=== PATIENT | female | born 1995 | race Caucasian/White ===

== ENCOUNTER 2020-07-26 04:35 | Emergency (ER) | payer BC ==
[2020-07-26 04:45] VITALS: O2SAT 100
[2020-07-26] MEDS ORDERED: Sodium Chloride 0.9% 1000 ML 1,000 ML IV STA (05:04)
--- NOTE | 2020-07-26 05:04 | ERPHSYRPT ---
- History of Present Illness Source: patient, family Exam Limitations: no limitations Patient Subjective Stated Complaint: " I woke up at 4:30am and noticed a small amount of blood in my urine. It concerned me because I am 8 weeks and 4 days with twins. I am not having any pain right now though". Triage Nursing Assessment: . Timing/Duration: today Activites at Onset: rest Quality: other (no pain) Onset Location: other (no pain) Pain Radiation: none Severity of Pain-Max: none Severity of Pain-Current: none Prior abdominal problems: none Sexual intercourse history: non-contributory Modifying Factors: Improves With: nothing Associated Symptoms: other (vag bleeding) Hx Tetanus, Diphtheria Vaccination/Date Given: Yes Hx Influenza Vaccination/Date Given: Yes Hx Pneumococcal Vaccination/Date Given: No <HATTIE GAMINO - Last Filed: 07/26/20 06:56> <MARIA ELENA PAREDES - Last Filed: 07/26/20 09:08> - History of Present Illness Time Seen by Provider: 07/26/20 04:59 Physician History: pt is 8 weeks preg with twins and noted bleeding down below. No abd pain or cramping. abd is nontender without peritoneal signs. no other symptoms or signs reported. had normal US just last week. (HATTIE GAMINO) Allergies/Adverse Reactions: No Known Drug Allergies Allergy (Unverified 07/26/20 04:45) Home Medications: Aspirin 81 gm Chew [Baby Aspirin 81 mg Chew] 81 mg PO DAILY 07/26/20 [History] Cholecalciferol (Vitamin D3) [Vitamin D] 5,000 units PO DAILY 07/26/20 [History] Levothyroxine Sodium 50 mcg PO DAILY 07/26/20 [History] Metformin HCl 500 mg PO BID 07/26/20 [History] [place]-3 Fatty Acids/Fish Oil [Fish Oil 1,000 mg Capsule] 1 cap PO DAILY 07/26/20 [History] Vits W-Ca,Fe,FA(<1Mg) [] 1 tab PO DAILY 07/26/20 [History] proGESTerone [Progesterone] 50 mg VAG HS 07/26/20 [History] Travel Risk - International Travel Have you traveled outside of the country in past 3 weeks: No - Coronavirus Screening Are you exhibiting any of the following symptoms?: No Close contact with a COVID-19 positive Pt in past 14-21 Days: No <HATTIE GAMINO - Last Filed: 07/26/20 06:56> - Review of Systems Constitutional: No Fever, No Chills Eyes: No Symptoms Ears, Nose, & Throat: No Symptoms Respiratory: No Cough, No Dyspnea Cardiac: No Chest Pain, No Edema, No Syncope Abdominal/Gastrointestinal: No Abdominal Pain, No Nausea, No Vomiting, No Diarrhea Genitourinary Symptoms: Vaginal Bleeding, No Dysuria Musculoskeletal: No Back Pain, No Neck Pain Skin: No Symptoms, No Rash Neurological: No Symptoms, No Dizziness, No Focal Weakness, No Sensory Changes Psychological: No Symptoms Endocrine: No Symptoms Hematologic/Lymphatic: No Symptoms Immunological/Allergic: No Symptoms All Other Systems: Reviewed and Negative <HATTIE GAMINO - Last Filed: 07/26/20 06:56> - Past Medical History Pertinent Past Medical History: Yes Endocrine Medical History: Hypothyroidism - Past Surgical History Past Surgical History: Yes Other Surgical History: spinal fusion - Social History Smoking Status: Never smoker Exposure to second hand smoke: No Drug Use: none Patient Lives Alone: No - Female History Hx Last Menstrual Period: 05/27/20 Hx Now: Yes Expected Date of Delivery: 03/03/21 <HATTIE GAMINO - Last Filed: 07/26/20 06:56> - Physical Exam General Appearance: no apparent distress, alert Eye Exam: PERRL/EOMI, eyes nml inspection Ears, Nose, Throat Exam: normal ENT inspection, TMs normal, pharynx normal, moist mucous membranes Neck Exam: normal inspection, non-tender, supple, full range of motion Respiratory Exam: normal breath sounds, lungs clear, No respiratory distress Cardiovascular Exam: regular rate/rhythm, normal heart sounds, normal peripheral pulses Gastrointestinal/Abdomen Exam: soft, No tenderness, No mass Pelvic Exam: deferred (no placental or memb disruption on US ) Rectal Exam: deferred Back Exam: normal inspection, normal range of motion, No CVA tenderness, No vertebral tenderness Extremity Exam: normal inspection, normal range of motion, pelvis stable Neurologic Exam: alert, oriented x 3, cooperative, music pastor II-XII nml as tested, normal mood/affect, sensation nml, No motor deficits Skin Exam: normal color, warm, dry Lymphatic Exam: No adenopathy SpO2 Interpretation: normal SpO2: 100 O2 Delivery: Room Air <HATTIE GAMINO - Last Filed: 07/26/20 06:56> - Nursing Vital Signs Nursing Vital Signs: Initial Vital Signs Temperature 98.3 F 07/26/20 04:39 Pulse Rate 89 07/26/20 04:39 Respiratory Rate 16 07/26/20 04:39 Blood Pressure 141/84 07/26/20 04:39 O2 Sat by Pulse Oximetry 100 07/26/20 04:39 Pain Scale Pain Intensity 0 - Course Nursing assessment & vital signs reviewed: Yes - Radiology Ultrasound Exam OB Ultrasound: tele radiology report, Other (small amount culdesac fluid - twin gestations intact and nl FHT) <HATTIE GAMINO - Last Filed: 07/26/20 06:56> Ordered Tests: Active Orders 24 hr Category Date Time Status Heart Tones-ED STAT Care 07/26/20 05:04 Active IV Insertion STAT Care 07/26/20 05:04 Active OB <14 WKS 1ST GESTATION [US] Stat Exams 07/26/20 05:05 Completed CBC W DIFF Stat Lab 07/26/20 05:00 Completed CMP Stat Lab 07/26/20 05:00 Completed HCG, Quantitative (Inhouse) Stat Lab 07/26/20 05:00 Completed Medication Summary Discontinued Medications Generic Name Dose Route Start Last Admin Trade Name Freq PRN Reason Stop Dose Admin Sodium Chloride 1,000 mls @ 999 mls/hr 07/26/20 05:04 07/26/20 06:56 Sodium Chloride 0.9% 1000 Ml IV 07/26/20 06:04 Infused .Q1H1M STA Infusion Sodium Chloride Confirm 07/26/20 05:17 Sodium Chloride 0.9% 1000 Ml Administered 07/26/20 05:18 Dose 1,000 mls @ ud .ROUTE .STK-MED ONE Rho Immune Globulin 300 mcg 07/26/20 06:34 07/26/20 07:19 Rhogam Plus 300 Mcg IM 07/26/20 06:35 300 mcg .ONCE ONE Administration Lab/Rad Data: Laboratory Result Diagrams 07/26/20 05:00 07/26/20 05:00 Laboratory Results 07/26/20 07/26/20 07/26/20 Range/Units 05:12 05:00 05:00 WBC (4.0-10.5) K/mm3 RBC (4.1-5.4) M/mm3 Hgb (12.0-16.0) gm/dl Hct (35-47) % MCV (78-100) fl MCH (26-32) pg MCHC (32-36) g/dl RDW (11.5-14.0) % Plt Count (150-450) K/mm3 MPV (7.5-11.0) fl Gran % (36.0-66.0) % Eos # (Auto) (0-0.5) Absolute Lymphs (auto) (1.0-4.6) Absolute Monos (auto) (0.0-1.3) Lymphocytes % (24.0-44.0) % Monocytes % (0.0-12.0) % Eosinophils % (0.00-5.0) % Basophils % (0.0-0.4) % Absolute Granulocytes (1.4-6.9) Basophils # (0-0.4) Sodium 135 L (137-145) mmol/L Potassium 3.7 (3.5-5.1) mmol/L Chloride 104 (98-107) mmol/L Carbon Dioxide 22 (22-30) mmol/L Anion Gap 12.5 (5-15) MEQ/L BUN 11 (7-17) mg/dL Creatinine 0.52 (0.52-1.04) mg/dL Estimated GFR > 60.0 ML/MIN Glucose 87 (74-106) mg/dL Calcium 9.5 (8.4-10.2) mg/dL Total Bilirubin 0.50 (0.2-1.3) mg/dL AST 18 (14-36) U/L ALT 20 (0-35) U/L Alkaline Phosphatase 59 (38-126) U/L Serum Total Protein 6.8 (6.3-8.2) g/dL Albumin 4.0 (3.5-5.0) g/dL Beta HCG, Quant [id number] mIU/ml ABO Group O Rh Factor NEGATIVE Antibody Screen NEGATIVE (NEGATIVE) 07/26/20 Range/Units 05:00 WBC 9.6 (4.0-10.5) K/mm3 RBC 4.63 (4.1-5.4) M/mm3 Hgb 13.3 (12.0-16.0) gm/dl Hct 40.7 (35-47) % MCV 87.9 (78-100) fl MCH 28.7 (26-32) pg MCHC 32.7 (32-36) g/dl RDW 13.7 (11.5-14.0) % Plt Count 250 (150-450) K/mm3 MPV 9.7 (7.5-11.0) fl Gran % 56.1 (36.0-66.0) % Eos # (Auto) 0.46 (0-0.5) Absolute Lymphs (auto) 2.95 (1.0-4.6) Absolute Monos (auto) 0.77 (0.0-1.3) Lymphocytes % 30.7 (24.0-44.0) % Monocytes % 8.0 (0.0-12.0) % Eosinophils % 4.8 (0.00-5.0) % Basophils % 0.4 (0.0-0.4) % Absolute Granulocytes 5.40 (1.4-6.9) Basophils # 0.04 (0-0.4) Sodium (137-145) mmol/L Potassium (3.5-5.1) mmol/L Chloride (98-107) mmol/L Carbon Dioxide (22-30) mmol/L Anion Gap (5-15) MEQ/L BUN (7-17) mg/dL Creatinine (0.52-1.04) mg/dL Estimated GFR ML/MIN Glucose (74-106) mg/dL Calcium (8.4-10.2) mg/dL Total Bilirubin (0.2-1.3) mg/dL AST (14-36) U/L ALT (0-35) U/L Alkaline Phosphatase (38-126) U/L Serum Total Protein (6.3-8.2) g/dL Albumin (3.5-5.0) g/dL Beta HCG, Quant mIU/ml ABO Group Rh Factor Antibody Screen (NEGATIVE) - Progress Progress: re-examined Air Movement: good Blood Culture(s) Obtained: No Antibiotics given: No Discussed with : Toi Will see patient in: office Counseled pt/family regarding: lab results, diagnosis, need for follow-up, rad results <HATTIE GAMINO - Last Filed: 07/26/20 06:56> - Progress Discussed with : Toi Will see patient in: office Counseled pt/family regarding: lab results, diagnosis, need for follow-up, rad results <MARIA ELENA PAREDES - Last Filed: 07/26/20 09:08> - Progress Progress Note: 07/26/20 06:[address] Martines , her OB, and he states she may continue all meds including the baby aspirin as previously prescribed and just be on pelvic rest. 07/26/20 06:41 07/26/20 06:[address] Castro at change of shift to await final US interpretation for any change in disposition after discussion of pending report and fundings, but anticipate DC home on pelvic rest with outpt f/u OB as discussed with Dr. Martines. (HATTIE GAMINO) 07/26/20 09:[address] Martines, no intercourse/No heavy lifting for 1 week (MARIA ELENA PAREDES) - Departure Departure Disposition: Home Critical Care Time: No <GAMINOHATTIE SANDERS - Last Filed: 07/26/20 06:56> - Departure Departure Disposition: Home <MARIA ELENA PAREDES - Last Filed: 07/26/20 09:08> - Departure Clinical Impression: Threatened miscarriage in early Condition: Good Referrals: DAVID JONES, YONATAN [Primary Care Provider] - Instructions: Threatened Miscarriage (DC), Symptoms, Bleeding With (DC) Additional Instructions: keep your appointment as planned with Dr. Martines. Be on pelvic rest until that time , and stay off your feet today until bleeding stops. return meantime or call his office if bleeding continues, or any pain, or other concerns.
[2020-07-26 05:13] LABS: BASOPHIL % 0.4 % (0.0-0.4); Basophil (Absolute #) 0.04 (0-0.4); Eosinophil % 4.8 % (0.00-5.0); Eosinophil (Absolute #) 0.46 (0-0.5); Hematocrit 40.7 % (35-47); Hemoglobin 13.3 gm/dl (12.0-16.0); Lymphocyte (Absolute #) 2.95 (1.0-4.6); Lymphocytes % 30.7 % (24.0-44.0); Mean Cell Volume 87.9 fl (78-100); Mean Corpuscular Hemoglobin 28.7 pg (26-32); Mean Corpuscular Hgb Concent. 32.7 g/dl (32-36); Mean Platelet Volume 9.7 fl (7.5-11.0); Monocyte (Absolute #) 0.77 (0.0-1.3); Neutrophil % 56.1 % (36.0-66.0); Platelet Count 250 K/mm3 (150-450); Red Blood Count 4.63 M/mm3 (4.1-5.4); Red Cell Distribution Width 13.7 % (11.5-14.0); White Blood Count 9.6 K/mm3 (4.0-10.5)
[2020-07-26] MEDS ORDERED: Sodium Chloride 0.9% 1000 ML 1,000 ML ONE (05:17)
[2020-07-26 05:40] LABS: ALKALINE PHOSPHATASE 59 U/L (38-126); ANION GAP 12.5 MEQ/L (5-15); BLOOD UREA NITROGEN 11 mg/dL (7-17); CHLORIDE 104 mmol/L (98-107); Calcium 9.5 mg/dL (8.4-10.2); Carbon Dioxide 22 mmol/L (22-30); Creatinine 1 0.52 mg/dL (0.52-1.04); EST GLOMERULAR FILTRATION RATE > 60.0 ML/MIN; Glucose 87 mg/dL (74-106); Potassium 3.7 mmol/L (3.5-5.1); SGOT/AST 18 U/L (14-36); SGPT/ALT 20 U/L (0-35); SODIUM 135 mmol/L (137-145); Total Protein 6.8 g/dL (6.3-8.2)
[2020-07-26 06:30] LABS: ABO TYPING O; Antibody Screen NEGATIVE (NEGATIVE); RH TYPING NEGATIVE
[2020-07-26] MEDS ORDERED: Rhogam Plus 300 MCG IM ONE (06:34)
--- NOTE | 2020-07-26 08:58 | XRAY ---
Indication: Twin gestation. Two-dimensional transabdominal early OB ultrasound performed. Comparison: July 19, 2020. Again there are 2 intrauterine gestational sacs with single pole in each sac. Twin A mean crown-rump length is 2.05 cm corresponding to 8 weeks 5 days. heart rate 171 BPM. Twin B mean crown-rump length is 2.17 cm corresponding to 8 weeks 6 days. heart rate 176 BPM. No suspicious subchorionic fluid collection. Ovaries not visualized. No suspicious adnexal mass or free fluid. New tiny cul-de-sac fluid. Impression: Again viable intrauterine twin measuring 8 weeks 5 days and 8 weeks 6 days. Normal progression of . No new/acute findings.
[2020-07-26 09:29] VITALS: BP 101/67; PULSE 86
== END 2020-07-26 09:30 | disposition home or self-care (01) ==
LOC: ED 04:35
DX: O20.0 Threatened abortion (principal); Z3A.08 8 weeks gestation of pregnancy
CPT/HCPCS: 36000; 36415; 76801; 80053; 84702; 85025; 86850; 86900; 86901; 96360; 96372; 99284; J2790

== ENCOUNTER 2020-10-05 14:57 | Emergency (ER) | payer BC ==
--- NOTE | 2020-10-05 15:11 | ERPHSYRPT ---
- History of Present Illness Time Seen by Provider: 10/05/20 15:11 Source: patient Exam Limitations: no limitations Physician History: This is a 25-year-old white female who is on thyroid replacement medication as well as being 18 weeks with twins and presents with heart racing and palpitations symptoms. She has not had a prior EKG. She has no urinary tract infection symptoms. She has no chest pain. She is not short of breath. She has no abdominal pain. She is had no vaginal discharge or vaginal bleeding. She is not on any new medications. She denies illicit drug use of any kind. She does not consume significant amount of caffeine-containing products. Patient's nurse practitioner is Lorraine Carreno and her rn radiation is Dr. Martines Timing/Duration: day(s) (A couple of days) Activities at Onset: none Chest Pain Radiation: no radiation Severity of Pain-Max: none Severity of Pain-Current: none Modifying Factors: Improves With: nothing Nitro Today/Relief: no nitro taken today Aspirin Treatment Today: no aspirin today Associated Symptoms: denies symptoms Prior Chest Pain/Cardiac Workup: no prior chest pain, no prior cardiac workup, non-cardiac Allergies/Adverse Reactions: No Known Drug Allergies Allergy (Verified 10/05/20 15:15) Home Medications: Aspirin 81 gm Chew [Baby Aspirin 81 mg Chew] 162 mg PO DAILY 07/26/20 [History] Cholecalciferol (Vitamin D3) [Vitamin D] 5,000 units PO DAILY 07/26/20 [History] Levothyroxine Sodium 50 mcg PO DAILY 07/26/20 [History] [place]-3 Fatty Acids/Fish Oil [Fish Oil 1,000 mg Capsule] 1 cap PO DAILY 07/26/20 [History] Vits W-Ca,Fe,FA(<1Mg) [] 1 tab PO DAILY 07/26/20 [History] Ferrous Sulfate [Feosol] 325 mg PO DAILY 10/05/20 [History] Folic Acid 1 mg [Folate 1 mg] 1 mg PO DAILY 10/05/20 [History] Hx Tetanus, Diphtheria Vaccination/Date Given: Yes Hx Influenza Vaccination/Date Given: Yes Hx Pneumococcal Vaccination/Date Given: No Travel Risk - International Travel Have you traveled outside of the country in past 3 weeks: No - Coronavirus Screening Are you exhibiting any of the following symptoms?: No Close contact with a COVID-19 positive Pt in past 14-21 Days: No - Review of Systems Constitutional: No Symptoms Eyes: No Symptoms Ears, Nose, & Throat: No Symptoms Respiratory: No Symptoms Cardiac: Palpitations, No Chest Pain Abdominal/Gastrointestinal: No Symptoms Genitourinary Symptoms: No Symptoms Musculoskeletal: No Symptoms Skin: No Symptoms Neurological: No Symptoms Psychological: No Symptoms Endocrine: No Symptoms Hematologic/Lymphatic: No Symptoms Immunological/Allergic: No Symptoms All Other Systems: Reviewed and Negative - Past Medical History Pertinent Past Medical History: Yes Neurological History: No Pertinent History ENT History: No Pertinent History Cardiac History: No Pertinent History Respiratory History: No Pertinent History Endocrine Medical History: Hypothyroidism Musculoskeletal History: No Pertinent History GI Medical History: No Pertinent History History: No Pertinent History Psycho-Social History: No Pertinent History Female Reproductive Disorders: No Pertinent History - Past Surgical History Past Surgical History: Yes Neuro Surgical History: No Pertinent History Cardiac: No Pertinent History Respiratory: No Pertinent History Gastrointestinal: No Pertinent History Genitourinary: No Pertinent History Musculoskeletal: No Pertinent History Female Surgical History: No Pertinent History Other Surgical History: spinal fusion - Social History Smoking Status: Never smoker Exposure to second hand smoke: No Drug Use: none Patient Lives Alone: No - Nursing Vital Signs Nursing Vital Signs: Initial Vital Signs Temperature 99.1 F 10/05/20 15:07 Pulse Rate 108 H 10/05/20 15:07 Respiratory Rate 22 10/05/20 15:07 Blood Pressure 124/79 10/05/20 15:07 O2 Sat by Pulse Oximetry 100 10/05/20 15:07 Pain Scale Pain Intensity 2 - Physical Exam General Appearance: no apparent distress, alert, anxiety Eye Exam: PERRL/EOMI, eyes nml inspection Ears, Nose, Throat Exam: normal ENT inspection, moist mucous membranes Neck Exam: normal inspection, non-tender, supple, full range of motion Respiratory Exam: normal breath sounds, lungs clear, airway intact, No chest tenderness, No respiratory distress Cardiovascular Exam: regular rate/rhythm, normal heart sounds, normal peripheral pulses Gastrointestinal/Abdomen Exam: soft, normal bowel sounds, No tenderness Pelvic Exam: not done Rectal Exam: not done Back Exam: normal inspection, normal range of motion, No CVA tenderness, No vertebral tenderness Extremity Exam: normal inspection, normal range of motion, pelvis stable Neurologic Exam: alert, oriented x 3, cooperative, radiopharmacist II-XII nml as tested, normal mood/affect, nml cerebellar function, nml station & gait, sensation nml Skin Exam: normal color, warm, dry Lymphatic Exam: adenopathy SpO2 Interpretation: normal O2 Delivery: Room Air - Course Nursing assessment & vital signs reviewed: Yes EKG Interpreted by Me: RATE (100), Sinus Tach, NORMAL AXIS, NORMAL INTERVALS, NORMAL QRS, NORMAL ST-T Ordered Tests: Active Orders 24 hr Category Date Time Status EKG-ER Only STAT Care 10/05/20 15:41 Active IV Insertion STAT Care 10/05/20 15:41 Active OB LIMITED [US] Stat Exams 10/05/20 15:45 Completed CBC W DIFF Stat Lab 10/05/20 15:41 Completed CMP Stat Lab 10/05/20 15:41 Completed T4 (Thyroxine) Stat Lab 10/05/20 15:41 Received TROPONIN Q3H Lab 10/05/20 15:41 Received TROPONIN Q3H Lab 10/05/20 20:00 Ordered TROPONIN Q3H Lab 10/05/20 23:00 Ordered TSH [TSH, 3RD Generation] Stat Lab 10/05/20 15:41 Received UA W/RFX UR CULTURE Stat Lab 10/05/20 15:45 Completed Medication Summary Discontinued Medications Generic Name Dose Route Start Last Admin Trade Name Oleksandr PRN Reason Stop Dose Admin Sodium Chloride 1,000 mls @ 999 mls/hr 10/05/20 15:41 10/05/20 16:08 Sodium Chloride 0.9% 1000 Ml IV 10/05/20 16:41 999 mls/hr .Q1H1M STA Administration Sodium Chloride Confirm 10/05/20 16:06 Sodium Chloride 0.9% 1000 Ml Administered 10/05/20 16:07 Dose 1,000 mls @ ud .ROUTE .STK-MED ONE Lab/Rad Data: Laboratory Result Diagrams 10/05/20 15:41 10/05/20 15:41 Laboratory Results 10/05/20 10/05/20 10/05/20 Range/Units 15:45 15:41 15:41 WBC 9.6 (4.0-10.5) K/mm3 RBC 3.59 L (4.1-5.4) M/mm3 Hgb 10.7 L (12.0-16.0) gm/dl Hct 33.0 L (35-47) % MCV 91.9 (78-100) fl MCH 29.8 (26-32) pg MCHC 32.4 (32-36) g/dl RDW 15.5 H (11.5-14.0) % Plt Count 217 (150-450) K/mm3 MPV 9.8 (7.5-11.0) fl Gran % 71.5 H (36.0-66.0) % Eos # (Auto) 0.23 (0-0.5) Absolute Lymphs (auto) 1.73 (1.0-4.6) Absolute Monos (auto) 0.76 (0.0-1.3) Lymphocytes % 18.0 L (24.0-44.0) % Monocytes % 7.9 (0.0-12.0) % Eosinophils % 2.4 (0.00-5.0) % Basophils % 0.2 (0.0-0.4) % Absolute Granulocytes 6.85 (1.4-6.9) Basophils # 0.02 (0-0.4) Sodium 136 L (137-145) mmol/L Potassium 3.5 (3.5-5.1) mmol/L Chloride 106 (98-107) mmol/L Carbon Dioxide 23 (22-30) mmol/L Anion Gap 9.7 (5-15) MEQ/L BUN 6 L (7-17) mg/dL Creatinine 0.41 L (0.52-1.04) mg/dL Estimated GFR > 60.0 ML/MIN Glucose 109 H (74-106) mg/dL Calcium 9.2 (8.4-10.2) mg/dL Total Bilirubin 0.50 (0.2-1.3) mg/dL AST 16 (14-36) U/L ALT 13 (0-35) U/L Alkaline Phosphatase 52 (38-126) U/L Serum Total Protein 6.7 (6.3-8.2) g/dL Albumin 3.6 (3.5-5.0) g/dL Urine Color STRAW (YELLOW) Urine Appearance CLEAR (CLEAR) Urine pH 7.0 (5-6) Ur Specific [place] 1.005 (1.005-1.025) Urine Protein NEGATIVE (Negative) Urine Ketones NEGATIVE (NEGATIVE) Urine Blood NEGATIVE (0-5) Gerard/ul Urine Nitrite NEGATIVE (NEGATIVE) Urine Bilirubin NEGATIVE (NEGATIVE) Urine Urobilinogen NEGATIVE (0-1) mg/dL Ur Leukocyte Esterase NEGATIVE (NEGATIVE) Urine WBC (Auto) NONE (0-5) /HPF Urine RBC (Auto) NONE SEEN (0-2) /HPF U Epithel Cells (Auto) RARE (FEW) /HPF Urine Bacteria (Auto) RARE (NEGATIVE) /HPF Urine Culture Reflexed NO (NO) Urine Glucose NEGATIVE (NEGATIVE) mg/dL - Progress Progress: improved, re-examined Air Movement: good Progress Note: 10/05/20 17:02 OB ultrasound greater than 14 weeks plus additional ultrasound shows 2 viable intrauterine fetuses 10/05/20 17:18 I reviewed the patient history, condition, vital signs, laboratory work-up and ultrasound findings with Dr. Martines, the patient's rn radiation. He agrees with allowing the patient to be discharged to home and asked me to reinforce the fact that intermittent tachycardia during is not necessarily unusual and is something that seen often. It is usually hormone induced. This was relayed to the patient. Blood Culture(s) Obtained: No Antibiotics given: No Counseled pt/family regarding: lab results, diagnosis, need for follow-up, rad results - Departure Departure Disposition: Home Clinical Impression: Tachycardia Condition: Stable Critical Care Time: No Referrals: LORRAINE CARRENO NP [Primary Care Provider] - Additional Instructions: Drink plenty of fluids. Take your medication as prescribed. Follow-up with your primary care doctor and rn radiation as needed.
[2020-10-05] MEDS ORDERED: Sodium Chloride 0.9% 1000 ML 1,000 ML IV STA (15:41)
[2020-10-05 15:54] LABS: Absolute Neutrophil Ct (ANC) 6.85 (1.4-6.9); BASOPHIL % 0.2 % (0.0-0.4); Basophil (Absolute #) 0.02 (0-0.4); Eosinophil % 2.4 % (0.00-5.0); Eosinophil (Absolute #) 0.23 (0-0.5); Hemoglobin 10.7 gm/dl (12.0-16.0); Lymphocyte (Absolute #) 1.73 (1.0-4.6); Mean Cell Volume 91.9 fl (78-100); Mean Corpuscular Hemoglobin 29.8 pg (26-32); Mean Corpuscular Hgb Concent. 32.4 g/dl (32-36); Mean Platelet Volume 9.8 fl (7.5-11.0); Monocyte (Absolute #) 0.76 (0.0-1.3); Monocytes % 7.9 % (0.0-12.0); Neutrophil % 71.5 % (36.0-66.0); Platelet Count 217 K/mm3 (150-450); Red Blood Count 3.59 M/mm3 (4.1-5.4); Red Cell Distribution Width 15.5 % (11.5-14.0); White Blood Count 9.6 K/mm3 (4.0-10.5)
[2020-10-05 16:00] LABS: Appearance CLEAR (CLEAR); Bacteria RARE /HPF (NEGATIVE); Bilirubin NEGATIVE (NEGATIVE); Blood NEGATIVE Ery/ul (0-5); Epithelial Cells RARE /HPF (FEW); Glucose NEGATIVE (NEGATIVE); Ketones NEGATIVE (NEGATIVE); Leukocyte Esterase NEGATIVE (NEGATIVE); Nitrite NEGATIVE (NEGATIVE); Protein,Urine Dip NEGATIVE (Negative); Specific Gravity 1.005 (1.005-1.025); Urobilinogen NEGATIVE mg/dL (0-1)
[2020-10-05 16:01] LABS: RBC NONE SEEN /HPF (0-2)
[2020-10-05 16:03] VITALS: PULSE 91; O2SAT 98
[2020-10-05] MEDS ORDERED: Sodium Chloride 0.9% 1000 ML 1,000 ML ONE (16:06)
[2020-10-05 16:09] LABS: ALBUMIN 3.6 g/dL (3.5-5.0); ALKALINE PHOSPHATASE 52 U/L (38-126); ANION GAP 9.7 MEQ/L (5-15); BLOOD UREA NITROGEN 6 mg/dL (7-17); CHLORIDE 106 mmol/L (98-107); Calcium 9.2 mg/dL (8.4-10.2); Carbon Dioxide 23 mmol/L (22-30); Creatinine 1 0.41 mg/dL (0.52-1.04); EST GLOMERULAR FILTRATION RATE > 60.0 ML/MIN; Glucose 109 mg/dL (74-106); Potassium 3.5 mmol/L (3.5-5.1); SGOT/AST 16 U/L (14-36); SGPT/ALT 13 U/L (0-35); SODIUM 136 mmol/L (137-145); Total Protein 6.7 g/dL (6.3-8.2)
--- NOTE | 2020-10-05 16:51 | XRAY ---
Indication: No heart tones. Two-dimensional limited twin OB ultrasound demonstrates baby A heart rate 145 BPM and baby B heart rate 163 BPM.
[2020-10-05 17:03] VITALS: BP 118/76
[2020-10-05 17:47] LABS: T4 (Thyroxine) 13.4 ug/dL (5.53-10.96); TSH, 3RD Generation 1.03 mIU/L (0.47-4.68)
== END 2020-10-05 18:05 | disposition home or self-care (01) ==
LOC: ED 14:57
DX: R00.0 Tachycardia, unspecified (principal); O30.002 Twin pregnancy, unspecified number of placenta and unspecified number of amniotic sacs, second trimester; Z3A.18 18 weeks gestation of pregnancy; Z79.899 Other long term (current) drug therapy
CPT/HCPCS: 36000; 36415; 76815; 80053; 81001; 84436; 84443; 84484; 85025; 93005; 96360; 99284

== ENCOUNTER 2021-01-03 07:59 | Observation (INO) | payer BC ==
[2021-01-03 09:40] VITALS: BP 131/82; PULSE 117; O2SAT 99
== END 2021-01-03 09:30 | disposition home or self-care (01) ==
LOC: OB 07:59
PROVIDERS: ADMIT Obstetrics & Gynecology; ATTEND Obstetrics & Gynecology
DX: O30.003 Twin pregnancy, unspecified number of placenta and unspecified number of amniotic sacs, third trimester (principal); Z3A.31 31 weeks gestation of pregnancy
CPT/HCPCS: 59025; G0378

== ENCOUNTER 2021-01-10 08:06 | Observation (INO) | payer BC ==
[2021-01-10 09:16] VITALS: BP 138/69; PULSE 100
== END 2021-01-10 09:15 | disposition home or self-care (01) ==
LOC: OB 08:06
PROVIDERS: ADMIT Obstetrics & Gynecology; ATTEND Obstetrics & Gynecology
DX: O30.003 Twin pregnancy, unspecified number of placenta and unspecified number of amniotic sacs, third trimester (principal); Z3A.32 32 weeks gestation of pregnancy
CPT/HCPCS: 59025; G0378

== ENCOUNTER 2021-01-19 09:46 | Observation (INO) | payer BC ==
[2021-01-19 11:28] LABS: Absolute Neutrophil Ct (ANC) 6.61 (1.4-6.9); BASOPHIL % 0.3 % (0.0-0.4); Basophil (Absolute #) 0.03 (0-0.4); Eosinophil % 1.6 % (0.00-5.0); Eosinophil (Absolute #) 0.15 (0-0.5); Hematocrit 37.6 % (35-47); Lymphocytes % 16.5 % (24.0-44.0); Mean Cell Volume 92.8 fl (78-100); Mean Corpuscular Hemoglobin 29.6 pg (26-32); Mean Corpuscular Hgb Concent. 31.9 g/dl (32-36); Mean Platelet Volume 10.3 fl (7.5-11.0); Monocyte (Absolute #) 0.82 (0.0-1.3); Neutrophil % 72.6 % (36.0-66.0); Platelet Count 185 K/mm3 (150-450); Red Blood Count 4.05 M/mm3 (4.1-5.4); Red Cell Distribution Width 15.4 % (11.5-14.0); White Blood Count 9.1 K/mm3 (4.0-10.5)
[2021-01-19 11:35] LABS: Appearance SLIGHTLY CLOUDY (CLEAR); Bacteria RARE /HPF (NEGATIVE); Bilirubin NEGATIVE (NEGATIVE); Blood NEGATIVE Ery/ul (0-5); Glucose NEGATIVE (NEGATIVE); Ketones TRACE (NEGATIVE); Leukocyte Esterase NEGATIVE (NEGATIVE); Mucus SLIGHT /HPF (NEGATIVE); Nitrite NEGATIVE (NEGATIVE); Protein,Urine Dip 30 (Negative); Specific Gravity 1.013 (1.005-1.025); Urobilinogen NEGATIVE mg/dL (0-1)
[2021-01-19 11:40] LABS: ALBUMIN 3.4 g/dL (3.5-5.0); ALKALINE PHOSPHATASE 128 U/L (38-126); ANION GAP 13.3 MEQ/L (5-15); BLOOD UREA NITROGEN 3 mg/dL (7-17); CHLORIDE 104 mmol/L (98-107); Calcium 9.1 mg/dL (8.4-10.2); Carbon Dioxide 23 mmol/L (22-30); Creatinine 1 0.48 mg/dL (0.52-1.04); EST GLOMERULAR FILTRATION RATE > 60.0 ML/MIN; Glucose 70 mg/dL (74-106); Potassium 3.5 mmol/L (3.5-5.1); SGOT/AST 19 U/L (14-36); SGPT/ALT 13 U/L (0-35); SODIUM 137 mmol/L (137-145); Total Protein 6.5 g/dL (6.3-8.2); Uric Acid 4.9 mg/dL (2.6-6.0)
[2021-01-19 11:41] LABS: Creatinine, Urine Random 139.9 mg/dl
[2021-01-19 13:26] VITALS: O2SAT 98
[2021-01-19 13:37] VITALS: BP 122/60; PULSE 87
== END 2021-01-19 12:30 | disposition home or self-care (01) ==
LOC: WHC 09:46 → OB 10:13
PROVIDERS: ADMIT Obstetrics & Gynecology; ATTEND Obstetrics & Gynecology
DX: Z34.03 Encounter for supervision of normal first pregnancy, third trimester (principal); Z3A.34 34 weeks gestation of pregnancy
CPT/HCPCS: 36415; 59426; 80053; 81001; 81002; 82570; 84156; 84550; 85025; G0378

== ENCOUNTER 2021-01-23 13:41 | Observation (INO) | payer BC ==
[2021-01-23 14:28] VITALS: BP 125/62; PULSE 101
== END 2021-01-23 14:40 | disposition home or self-care (01) ==
LOC: OB 13:41
PROVIDERS: ADMIT Obstetrics & Gynecology; ATTEND Obstetrics & Gynecology
DX: O30.003 Twin pregnancy, unspecified number of placenta and unspecified number of amniotic sacs, third trimester (principal); Z3A.34 34 weeks gestation of pregnancy
CPT/HCPCS: 59025; G0378

== ENCOUNTER 2021-01-26 07:59 | Observation (INO) | payer BC ==
[2021-01-26 09:12] VITALS: BP 130/64; PULSE 86
== END 2021-01-26 09:05 | disposition home or self-care (01) ==
LOC: OB 07:59
PROVIDERS: ADMIT Obstetrics & Gynecology; ATTEND Obstetrics & Gynecology
DX: O30.003 Twin pregnancy, unspecified number of placenta and unspecified number of amniotic sacs, third trimester (principal); Z3A.35 35 weeks gestation of pregnancy
CPT/HCPCS: 59025; G0378